=== PATIENT | male | born 1970 | race Caucasian/White ===

== ENCOUNTER 2020-04-28 19:49 | Emergency (ER) | payer SELFPAY ==
[~2020-04-28] VITALS: Ht 178 cm; Wt 97.5 kg
[2020-04-28 20:14] LABS: BASOPHILS % (AUTO) 0 % (0-10); EOSINOPHILS # (AUTO) 0.1 10^3/uL (0.0-0.3); EOSINOPHILS % (AUTO) 1 % (0-10); HEMATOCRIT 47 % (40-54); HEMOGLOBIN 16.5 g/dL (13.3-17.7); LYMPHOCYTES # (AUTO) 2.8 10^3/uL (1.0-4.0); LYMPHOCYTES % (AUTO) 38 % (12-44); MEAN CORPUSCULAR HEMOGLOBIN 32 pg (25-34); MEAN CORPUSCULAR HGB CONC 35 g/dL (32-36); MEAN CORPUSCULAR VOLUME 91 fL (80-99); MEAN PLATELET VOLUME 9.9 fL (9.0-12.2); MONOCYTES # (AUTO) 0.5 10^3/uL (0.0-1.0); MONOCYTES % (AUTO) 7 % (0-12); NEUTROPHILS # (AUTO) 3.9 10^3/uL (1.8-7.8); NEUTROPHILS % (AUTO) 53 % (42-75); PLATELET COUNT 297 10^3/uL (130-400); WHITE BLOOD COUNT 7.3 10^3/uL (4.3-11.0)
[2020-04-28 20:19] LABS: CHLORIDE 106 MMOL/L (98-107)
[2020-04-28 20:20] LABS: POTASSIUM 3.3 MMOL/L (3.6-5.0); SODIUM 142 MMOL/L (135-145)
[2020-04-28 20:21] LABS: CALCIUM 8.4 MG/DL (8.5-10.1); GLUCOSE 110 MG/DL (70-105)
[2020-04-28 20:23] LABS: CARBON DIOXIDE 20 MMOL/L (21-32)
[2020-04-28 20:25] LABS: CREATININE SERUM 0.77 MG/DL (0.60-1.30); GFR ESTIMATED > 60
[2020-04-28 20:26] LABS: BUN/CREATININE RATIO 9
[2020-04-28 20:28] LABS: CREATINE KINASE 67 U/L (30-200)
--- NOTE | 2020-04-28 20:33 | Diagnostic Imaging Report ---
INDICATION: History of blood clots. Palpitations with shortness of breath. FINDINGS: Portable chest show the lungs to be well-aerated. There are no infiltrates. No evidence of pulmonary infarct. The heart is not enlarged. No pulmonary edema. No pneumothorax or pleural effusions. IMPRESSION: Negative portable chest. Dictated by: Dictated on workstation # [id number]
[2020-04-28 20:34] LABS: CREATINE KINASE MB 1.7 NG/ML (<6.6)
[2020-04-28] MEDS ORDERED: LORazepam 1 MG (ATIVAN) TAB PO ONE (21:00)
[2020-04-28] MEDS ORDERED: LORazepam 0.5 MG (ATIVAN) TABLET ONE (21:10)
--- NOTE | 2020-04-28 21:22 | ED Cardiac General ---
History of Present Illness General Chief Complaint: Cardiac/General Problems Stated Complaint: AFIB RVR Nursing Triage Note: brought in by [facility] c/o dizzy/lightheaded. stopped taking medications 3 months ago. Source: patient, EMS Exam Limitations: no limitations History of Present Illness Date Seen by Provider: Apr 28, 2020 Time Seen by Provider: 20:00 Initial Comments Patient is a 49-year-old male who presents to the emergency department by EMS today with a chief complaint of feeling dizzy, lightheaded, palpitations, intermittently short of breath. Patient states that all of the symptoms have been coming on for several days. Patient states that he quit taking his medications at least 3 months ago after he moved from [facility] to [place], [place]. Patient states that back in July 2018 he was diagnosed with "my lungs full of blood clots". He states he was placed on Eliquis and took this medication for a short time but after he moved he quit taking it. Patient states that he has been told in the past that he has a history of atrial fibrillation. He cannot recall all of the medications that he is supposed to be on. He knows that one of his blood pressure medications was lisinopril. Patient also complains of significant anxiety. He states that he has panic attacks frequently. He states that he used to be on at least 3 mg of Xanax daily. He has been out of this medication as well. Patient relates stress secondary to his "kicking him out" and no contact with his children. EMS reported to be in atrial fibrillation with RVR rates 100-200. They also reported him to be significantly hypertensive. He did receive 10 mg of Cardizem IV prior to arrival here in the emergency department. Patient denies chest pain. He denies fevers, chills, productive cough. No GI or symptoms. No swelling in his legs. All other review of systems reviewed and negative except as stated above. Timing/Duration: 1-3 hours, getting worse Severity: mild Activities at Onset: none NTG SL MEDICAL REGISTRAR: No ASA po MEDICAL REGISTRAR: No Associated Systoms: Weakness Allergies and Home Medications Allergies Coded Allergies: No Known Drug Allergies (Unverified , 04/28/20) Home Medications Apixaban 2.5 Mg Tablet, 2.5 MG PO BID [place]cribed by: [place] [address] Hydroxyzine Pamoate 50 Mg Capsule, 50 MG PO Q6H PRN for ANXIETY Prescribed by: JOHN HORTON on 04/28/202340 Lisinopril 20 Mg Tablet, 20 MG PO DAILY Prescribed by: JOHN HORTON on 04/28/202340 Patient Home Medication List Home Medication List Reviewed: Yes Review of Systems Review of Systems Constitutional: see HPI EENTM: No Symptoms Reported Respiratory: Shortness of Air Cardiovascular: No Symptoms Reported Gastrointestinal: No Symptoms Reported Genitourinary: No Symptoms Reported Musculoskeletal: no symptoms reported Skin: no symptoms reported Psychiatric/Neurological: Anxiety, Depressed, Emotional Problems Endocrine: No Symptoms Reported All Other Systems Reviewed Negative Unless Noted: Yes Past Fknsfgj-Gmysbw-Whzdfk Hx Patient Social History Alcohol Use: Rarely Uses Recreational Drug Use: No Smoking Status: Never a Smoker 2nd Hand Smoke Exposure: Yes Recent Foreign Travel: No Contact w/Someone Who Travel: No Recent Infectious Disease Expo: No Recent Hopitalizations: No Immunizations Up To Date Tetanus Booster (TDap): Unknown Seasonal Allergies Seasonal Allergies: No Past Medical History Surgeries: Yes (hemmorhoid) Respiratory: No Cardiac: Yes Atrial Fibrillation, Hypertension Neurological: Yes Neuropathy Genitourinary: No Gastrointestinal: Yes Gastroesophageal Reflux Musculoskeletal: No Endocrine: No HEENT: No Cancer: No Psychosocial: Yes Anxiety, Depression Blood Disorders: No Physical Exam Vital Signs Vital Signs - First Documented 04/28/20 19:58 Temp 36.6 Pulse 89 Resp 20 B/P (MAP) 195/124 (147) Pulse Ox 97 O2 Delivery Room Air Capillary Refill : Less Than 3 Seconds Height, Weight, BMI Height: '" Weight: lbs. oz. 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 Norm as Tested Skin: Normal Color, Warm/Dry Progress/Results/Core Measures Results/Orders Lab Results Laboratory Tests Test 04/28/20 20:00 Range/Units White Blood Count 7.3 4.3-11.0 10^3/uL Red Blood Count 5.15 4.30-5.52 10^6/uL Hemoglobin 16.5 13.3-17.7 g/dL Hematocrit 47 40-54 % Mean Corpuscular Volume 91 80-99 fL Mean Corpuscular Hemoglobin 32 25-34 pg Mean Corpuscular Hemoglobin Concent 35 32-36 g/dL Red Cell Distribution Width 12.4 10.0-14.5 % Platelet Count 297 130-400 10^3/uL Mean Platelet Volume 9.9 9.0-12.2 fL Immature Granulocyte % (Auto) 0 % Neutrophils (%) (Auto) 53 42-75 % Lymphocytes (%) (Auto) 38 12-44 % Monocytes (%) (Auto) 7 0-12 % Eosinophils (%) (Auto) 1 0-10 % Basophils (%) (Auto) 0 0-10 % Neutrophils # (Auto) 3.9 1.8-7.8 10^3/uL Lymphocytes # (Auto) 2.8 1.0-4.0 10^3/uL Monocytes # (Auto) 0.5 0.0-1.0 10^3/uL Eosinophils # (Auto) 0.1 0.0-0.3 10^3/uL Basophils # (Auto) 0.0 0.0-0.1 10^3/uL Immature Granulocyte # (Auto) 0.0 0.0-0.1 10^3/uL Sodium Level 142 135-145 MMOL/L Potassium Level 3.3 L 3.6-5.0 MMOL/L Chloride Level 106 98-107 MMOL/L Carbon Dioxide Level 20 L 21-32 MMOL/L Anion Gap 16 H 5-14 MMOL/L Blood Urea Nitrogen 7 7-18 MG/DL Creatinine 0.77 0.60-1.30 MG/DL Estimat Glomerular Filtration Rate > 60 BUN/Creatinine Ratio 9 Glucose Level 110 H 70-105 MG/DL Calcium Level 8.4 L 8.5-10.1 MG/DL Total Creatine Kinase 67 30-200 U/L Creatine Kinase MB 1.7 <6.6 NG/ML Troponin I < 0.028 <0.028 NG/ML My Orders Orders - JOHN HORTON MD Cbc With Automated Diff (04/28/20 20:07) Basic Metabolic Panel (04/28/20 20:07) Troponin I (04/28/20 20:07) Creatine Kinase (04/28/20 20:07) Creatine Kinase Mb (04/28/20 20:07) Chest 1 View, Ap/Pa Only (04/28/20 20:07) Ekg Tracing (04/28/20 20:07) Lorazepam Tablet (Ativan Tablet) (04/28/20 21:00) Lorazepam Tablet (Ativan Tablet) (04/28/20 21:10) Lisinopril Tablet (Zestril Tablet) (04/28/20 23:45) Medications Given in ED Current Medications Medications Dose Ordered Sig/Colby Route Start Time Stop Time Status Last Admin Dose Admin Lorazepam 0.5 mg STK-MED ONCE .ROUTE 04/28/20 21:10 04/28/20 21:13 DC 04/28/20 21:14 1 MG Vital Signs/I&O 04/28/20 19:58 Temp 36.6 Pulse 89 Resp 20 B/P (MAP) 195/124 (147) Pulse Ox 97 O2 Delivery Room Air Blood Pressure Mean: 147 Progress Progress Note : Time: 23:43 Progress Note Multiple attempts were made to get medical records from [facility]. This was unsuccessful. The patient states that he has been on Eliquis as well as lisinopril. Will write him prescriptions for these medications. He is in a rate controlled atrial fibrillation at this time. Still quite hypertensive will give him some lisinopril prior to discharge. Patient is complaining of continued anxiety we will give him another milligram of Ativan p.o. We will send him home with Vistaril for his anxiety at home. Patient is referred to [facility] for further evaluation and management of his atrial fibrillation hypertension and anxiety. [id number] was able to obtain records finally from [facility]. Patient had been taken off his lisinopril but I am going to put him back on, secondary to his elevated blood pressure. PAtient will need to follow up with a PCP through [facility] to restart all of his various other medications. He was on risperdol, gemfibrozil, lovastatin and xanax. Initial ECG Impression Date: Apr 28, 2020 Initial ECG Impression Time: 19:56 Initial ECG Rate: 86 Initial ECG Rhythm: A Fib/Flutter Initial ECG Impression: Nonspecific Changes Diagnostic Imaging Diagonstic Imaging: Xray Plain Films/CT/US/NM/MRI: chest Comments [facility]. [place], [place] NAME: SHARAD LOVE [facility] REC#: [id number] PT STATUS: REG ER : 1970 PHYSICIAN: JOHN HORTON MD ADMIT DATE: 04/28/20/ER Signed Date of Exam:04/28/20 CHEST 1 VIEW, AP/PA ONLY INDICATION: History of blood clots. Palpitations with shortness of breath. FINDINGS: Portable chest show the lungs to be well-aerated. There are no infiltrates. No evidence of pulmonary infarct. The heart is not enlarged. No pulmonary edema. No pneumothorax or pleural effusions. IMPRESSION: Negative portable chest. Dictated by: Dictated on workstation # [id number] Dict: 04/28/202029 Trans: 04/28/202041 [facility] [id number] Interpreted by: CHAPIS COOK MD Electronically signed by: CHAPIS COOK MD 04/28/202041 Departure Impression Primary Impression: Anxiety Additional Impression: Atrial fibrillation Qualified Codes: I48.0 - Paroxysmal atrial fibrillation Disposition: HOME, SELF-CARE Condition: Stable Departure-Patient Inst. Decision time for Depature: 23:42 Referrals: [facility] Patient Instructions: Anxiety, Adult ED, Atrial Fibrillation Scripts Hydroxyzine Pamoate (Vistaril) 50 Mg Capsule 50 MG PO Q6H PRN for ANXIETY, #30 CAP Prov: JOHN HORTON MD 04/28/20 Apixaban (Eliquis) 2.5 Mg Tablet 2.5 MG PO BID, #60 TAB Prov: JOHN HORTON MD 04/28/20 Lisinopril (Lisinopril) 20 Mg Tablet 20 MG PO DAILY, #30 TAB Prov: JOHN HORTON MD 04/28/20 JOHN HORTON MD Apr 28, 2020 21:22
[2020-04-28] MEDS ORDERED: APIX2.5T PO (23:41)
[2020-04-28] MEDS ORDERED: HYDR50CA PO (23:41)
[2020-04-28] MEDS ORDERED: LISI-552 PO (23:41)
[2020-04-28] MEDS ORDERED: lisINopril 20 MG (PRINIVIL) TABLET PO ONE (23:45)
[2020-04-28 23:59] VITALS: BP 164/125
[2020-04-29] MEDS ORDERED: hydrOXYzine (VISTARIL/ATARAX) 25 MG capsule/tablet PO ONE (00:15)
--- NOTE | 2020-05-01 15:42 | NUR ---
POST DISCHARGE note. convention services manager was asked to call and assist this patient with obtaining medications ordered on this ER visit. I was able set up through our PALS voucher to assist with the Vistaril and the Lisinopril. I was able to use the Eliquis 30 day Free trial. I did ask for [facility] to deliver due to his expression that he has no way to get there to pick them up. I am unsure if [facility] will be able to deliver. Patient will be responsible to find transportation. I did educate him on this 1 time assistance through our PALS program and the need to get established with [facility] so that future medications can go through them. He reports that he has worked to transfer his [place] [facility] to [facility].
== END 2020-04-28 23:58 | disposition home or self-care (01) ==
LOC: ER 19:52
DX: I48.0 Paroxysmal atrial fibrillation (principal); F41.9 Anxiety disorder, unspecified; F32.9 Major depressive disorder, single episode, unspecified; R45.89 Other symptoms and signs involving emotional state; I10 Essential (primary) hypertension; Z79.01 Long term (current) use of anticoagulants; Z77.22 Contact with and (suspected) exposure to environmental tobacco smoke (acute) (chronic); Z79.899 Other long term (current) drug therapy
CPT/HCPCS: 36415; 71045; 80048; 82550; 82553; 84484; 85025; 93005

== ENCOUNTER 2020-08-23 16:13 | Emergency (ER) | payer MEDICAID ==
[~2020-08-23 16:13] MED LIST: APIX2.5T PO; HYDR50CA PO; LISI20TA26 PO
--- NOTE | 2020-08-23 16:20 | ED Chest Pain ---
General Stated Complaint: CHEST PAIN Source: patient Exam Limitations: no limitations History of Present Illness Date Seen by Provider: August 23, 2020 Time Seen by Provider: 16:19 Initial Comments To ER by EMS accompanied by [place] police after he was belligerent and combative while at [employer]. He then complained of chest pain while in the parking lot and requested an ambulance Timing/Duration: 1-2 days Severity/Quality: moderate Location: central Radiation: no radiation Activities at Onset: none ASA po CLIENT EXPERIENCE SPECIALIST: No NTG SL CLIENT EXPERIENCE SPECIALIST: No Allergies and Home Medications Allergies Coded Allergies: No Known Drug Allergies (Unverified , 04/28/20) Home Medications Apixaban 2.5 Mg Tablet, 2.5 MG PO BID Prescribed by: JOHN HORTON on 04/28/20 2341 Hydroxyzine Pamoate 50 Mg Capsule, 50 MG PO Q6H PRN for ANXIETY Prescribed by: JOHN HORTON on 04/28/20 2341 Lisinopril 20 Mg Tablet, 20 MG PO DAILY Prescribed by: JOHN HORTON on 04/28/20 2341 Patient Home Medication List Home Medication List Reviewed: Yes Review of Systems Review of Systems Constitutional: see HPI EENTM: No Symptoms Reported Respiratory: See HPI Cardiovascular: See HPI, Chest Pain Gastrointestinal: No Symptoms Reported Genitourinary: No Symptoms Reported Musculoskeletal: no symptoms reported Skin: no symptoms reported Psychiatric/Neurological: No Symptoms Reported Endocrine: No Symptoms Reported Past Iirmybo-Xtluct-Gxdnus Hx Patient Social History 2nd Hand Smoke Exposure: Yes Recent Hopitalizations: No Immunizations Up To Date Tetanus Booster (TDap): Unknown Seasonal Allergies Seasonal Allergies: No Past Medical History Surgeries: Yes (hemmorhoid) Respiratory: No Cardiac: Yes Atrial Fibrillation, Hypertension Neurological: Yes Neuropathy Genitourinary: No Gastrointestinal: Yes Gastroesophageal Reflux Musculoskeletal: No Endocrine: No HEENT: No Cancer: No Psychosocial: Yes Anxiety, Depression Blood Disorders: No Physical Exam Vital Signs Capillary Refill : Height, Weight, BMI Height: '" Weight: lbs. oz. kg; 30.00 BMI Method: General Appearance: No Apparent Distress, WD/WN Respiratory: No Accessory Muscle Use, No Respiratory Distress Cardiovascular: Irregularly Irregular, Tachycardia Gastrointestinal: Non Tender, Soft Neurologic/Psychiatric: Alert, Other (Belligerent combative refuses to allow any staff close to him, threatening to staff. States he wants to leave.) Skin: Normal Color, Warm/Dry Departure Communication (Admissions) [id number] refuses to allow IV access, he states he just wants to go on home now. [place] police district switchboard operator is here with the patient, escorted him off the property per his request. Impression Primary Impression: Atrial fibrillation Disposition: 07 AGAINST MEDICAL ADVICE Condition: Against Medical Advice Departure-Patient Inst. Referrals: NO,LOCAL PHYSICIAN (PCP/Family) Primary Care Physician ERROL WASHBURN APRN August 23, 2020 16:20
== END 2020-08-23 16:49 ==
LOC: EDUNIT# 16:13 → ER 16:14
DX: I48.91 Unspecified atrial fibrillation (principal); I10 Essential (primary) hypertension; F41.9 Anxiety disorder, unspecified; Z77.22 Contact with and (suspected) exposure to environmental tobacco smoke (acute) (chronic); Z79.01 Long term (current) use of anticoagulants; Z79.899 Other long term (current) drug therapy